=== PATIENT | female | born 1950 | race Caucasian/White ===

== ENCOUNTER 2019-04-14 06:48 | Day surgery (SDC) | payer MEDICARE ==
[2019-04-14] MEDS ORDERED: Propofol 200 MG/20 ML SDV ONE (07:05)
[2019-04-14] MEDS ORDERED: Midazolam 1 MG/ML 2 ML SDV ONE (07:05)
[2019-04-14] MEDS ORDERED: fentaNYL 100 MCG/2 ML SDV ONE (07:05)
[2019-04-14] MEDS ORDERED: Dextrose 5%-Lactated Ringers 1,000 ML IV SCH (07:30)
[2019-04-14] MEDS ORDERED: Atropine 0.4 MG/ML SDV ONE (09:44)
--- NOTE | 2019-04-23 19:03 | OR ---
DATE OF PROCEDURE: 04/14/2019 SURGEON: Chaitanya Worthington MD PREOPERATIVE DIAGNOSIS: Indication for screening colonoscopy. POSTOPERATIVE DIAGNOSIS: Uncomplicated javed-diverticulosis. OPERATIVE PROCEDURE: Flexible colonoscopy. ANESTHESIA: IV sedation. INDICATION FOR PROCEDURE: This is a 68-year-old female presenting for screening colonoscopy. Plan is to proceed with a colonoscopy with biopsies and/or polypectomy as indicated. Potential risks including bleeding and perforation were discussed, and the patient wishes to proceed. DETAILS OF PROCEDURE: The patient was taken to the operating room and placed in a left lateral decubitus position. IV sedation was administered, after which the initial digital rectal exam was performed and was unremarkable. The colonoscope was then passed into the rectum with retroflexion revealing uncomplicated hemorrhoidal columns. The scope was eventually passed to the cecum. The patient had diverticulosis throughout the abdominal colon with this being most intense on the left side. It was otherwise uncomplicated. There were no areas of colitis and no signs of polyps or other forms of neoplasia. The scope was then withdrawn, the above findings reconfirmed, and the procedure then concluded. Given the lack of personal or family history of colon neoplasia, the next colonoscopy should be scheduled in 10 years. Chaitanya Worthington MD /[id number]
== END 2019-04-14 11:15 | disposition home or self-care (01) ==
LOC: JP.SDS 06:48
PROVIDERS: ATTEND Surgery
DX: Z12.11 Encounter for screening for malignant neoplasm of colon (principal); K57.30 Diverticulosis of large intestine without perforation or abscess without bleeding; K64.9 Unspecified hemorrhoids; I10 Essential (primary) hypertension; E78.5 Hyperlipidemia, unspecified
CPT/HCPCS: G0121; J0461; J2250; J2704; J3010; J7121